=== PATIENT | male | born 1990 | race African-American/Black ===

== ENCOUNTER 2019-01-30 22:16 | Emergency (ER) | payer OTHER ==
[~2019-01-30] VITALS: Ht 182.9 cm; Wt 182.4 kg
[~2019-01-30 22:16] MED LIST: MYCELEX10 MG MT; NO MEDS
[2019-01-30 23:01] LABS: HEMATOCRIT 44.1 % (39.0-50.0); HEMOGLOBIN 14.6 g/dl (14.0-18.0); IMMATURE GRANULOCYTES 0.3 % (0.0-5.0); MEAN CELL VOLUME 82.3 fL CALC (80.0-100.0); MEAN CORPUSCULAR HGB 27.2 pG CALC (26.0-32.0); MEAN CORPUSCULAR HGB CONC 33.1 g/L CALC (32.0-36.0); NEUT# 3.02 thou/uL (1.82-7.42); RED BLOOD COUNT 5.36 mill/uL (4.70-6.10); RED CELL DISTRI WIDTH 13.2 % (11.5-15.5)
[2019-01-30 23:10] LABS: ALBUMIN 4.3 g/dL (3.2-5.0); ALKALINE PHOSPHATASE 78 u/l (38-126); ANION GAP 15 (6-22 (CALC)); BILIRUBIN, TOTAL 0.4 mg/dL (0.0-1.4); BUN 14 mg/dL (9-20); BUN/CREATININE RATIO 13 (12-20 (CALC)); CARBON DIOXIDE 25 mmol/l (22-30); CHLORIDE 102 mmol/l (95-108); GFR > 60 ML/MIN (>=60 (CALC)); GFR FOR AFR.AMER. > 60 ML/MIN (>=60 (CALC)); POTASSIUM 3.9 mmol/l (3.5-5.1); SGOT/AST 46 u/l (17-59); SODIUM 138 mmol/l (137-146); TOTAL PROTEIN 7.4 g/dL (6.3-8.2)
[2019-01-31] MEDS ORDERED: AMLODIPINE5 MG PO (00:08)
[2019-01-31 00:22] VITALS: BP 168/98
== END 2019-01-31 00:24 | disposition home or self-care (01) | DRG 305 ==
LOC: ED 22:16
PROVIDERS: Emergency Medicine
DX: I10 Essential (primary) hypertension (principal); T46.5X6A Underdosing of other antihypertensive drugs, initial encounter; Z91.128 Patient's intentional underdosing of medication regimen for other reason